=== PATIENT | male | born 1980 | race Caucasian/White ===

== ENCOUNTER → 2017-01-26 21:25 | Emergency (ER) | payer SELFPAY ==
[~2017-01-26 21:25] MED LIST: ADDERALL 30 MG30 M2 PO; NO HOME MEDICATION XX; NORCO 5-325 TA1 EACH PO; PENICILLIN V P500 M1 PO
== END ==
LOC: EDMED 21:25
DX: K04.7 Periapical abscess without sinus (principal); K02.9 Dental caries, unspecified; F17.210 Nicotine dependence, cigarettes, uncomplicated

== ENCOUNTER 2017-02-08 15:02 | Emergency (ER) | payer SELFPAY ==
[~2017-02-08 15:02] MED LIST changes: -ADDERALL 30 MG30 M2 PO
[2017-02-08] MEDS ORDERED: NORCO 5-325 TA1 EACH PO (16:05)
[2017-02-08] MEDS ORDERED: PENICILLIN V P500 M1 PO (16:05)
[2017-08-01] MEDS ORDERED: ADDERALL 30 MG30 M2 PO (11:44)
[2017-08-01] MEDS ORDERED: NORCO 5-325 TA1 EACH PO (13:03)
== END 2017-02-08 16:18 ==
LOC: EDMED 15:02
DX: K08.89 Other specified disorders of teeth and supporting structures (principal); F17.200 Nicotine dependence, unspecified, uncomplicated